=== PATIENT | female | born 1980 ===

== ENCOUNTER 2022-02-12 10:15 | Inpatient (IN) | payer OTHER ==
[~2022-02-12] VITALS: Ht 167.6 cm; Wt 97.5 kg
[2022-02-12] MEDS ORDERED: SIMVASTATIN10 MG PO (11:42)
[2022-02-12] MEDS ORDERED: ZESTRIL40 M1 PO (11:42)
[2022-02-19] MEDS ORDERED: IRBESARTAN150 MG (14:19)
[2022-02-20] MEDS ORDERED: ULTRACET PO (10:12)
[2022-02-20] MEDS ORDERED: INTESTINEX680 M1 PO (10:12)
== END 2022-02-20 12:25 | disposition home or self-care (01) | DRG 331 ==
LOC: O/R 02-17 06:33 → SURH 02-17 06:33 → SURG 02-17 15:19 → SURH 02-18 08:39
PROVIDERS: ADMIT Surgery; ATTEND Surgery
PROC: 0DBP4ZZ Excision of Rectum, Percutaneous Endoscopic Approach (ICD-10-PCS; 2022-02-17)
PROC: 0DTN4ZZ Resection of Sigmoid Colon, Percutaneous Endoscopic Approach (ICD-10-PCS; principal; 2022-02-17 10:30)
DX: K57.20 Diverticulitis of large intestine with perforation and abscess without bleeding (principal); I10 Essential (primary) hypertension; Z20.822 Contact with and (suspected) exposure to COVID-19; Z86.16 Personal history of COVID-19